=== PATIENT | female | born 1955 | race Caucasian/White ===

== ENCOUNTER → 2024-07-26 07:51 | Outpatient (REF) | payer MEDICARE, OTHER, SELFPAY | LOC: HWRCS 07:51 | PROVIDERS: ATTENDING PHYSICIAN Nurse Practitioner | DX: Z00.00 Encounter for general adult medical examination without abnormal findings (principal); I35.0 Nonrheumatic aortic (valve) stenosis; I07.1 Rheumatic tricuspid insufficiency | CPT/HCPCS: 93306 ==

== ENCOUNTER → 2024-08-10 10:57 | Outpatient (REF) | payer MEDICARE, OTHER, SELFPAY | LOC: HWWDC 10:57 | PROVIDERS: ATTENDING PHYSICIAN Nurse Practitioner | DX: Z12.31 Encounter for screening mammogram for malignant neoplasm of breast (principal); Z13.820 Encounter for screening for osteoporosis; M85.89 Other specified disorders of bone density and structure, multiple sites | CPT/HCPCS: 77063; 77067; 77080 ==

== ENCOUNTER → 2024-09-29 09:16 | Outpatient (REF) | payer MEDICARE, OTHER, SELFPAY | LOC: WDC 09:16 | PROVIDERS: ATTENDING PHYSICIAN Nurse Practitioner | DX: R92.8 Other abnormal and inconclusive findings on diagnostic imaging of breast (principal) | CPT/HCPCS: 77065 ==

== ENCOUNTER → 2024-10-07 07:34 | Outpatient (REF) | payer MEDICARE, OTHER, SELFPAY ==
--- NOTE | 2024-10-07 09:27 | OID.BR.INTR ---
NETTED Breast Navigator - Initial
- -
Date of Contact: 10/07/24
Met with patient. Patient given written information on navigator services available at [facility]. Will follow up as needed per protocol.
== END ==
LOC: WDC 07:34
PROVIDERS: ATTENDING PHYSICIAN Nurse Practitioner
DX: R92.1 Mammographic calcification found on diagnostic imaging of breast (principal)
CPT/HCPCS: 88305; 19081; 76098; A4648

== ENCOUNTER → 2024-10-31 10:57 | Outpatient (REF) | payer MEDICARE, OTHER, SELFPAY | LOC: WDC 10:57 | PROVIDERS: ATTENDING PHYSICIAN Surgery | DX: D05.11 Intraductal carcinoma in situ of right breast (principal) | CPT/HCPCS: 19281; A4648 ==

== ENCOUNTER → 2024-11-01 07:31 | Outpatient (REF) | payer MEDICARE, OTHER, SELFPAY | LOC: WDC 07:31 | PROVIDERS: ATTENDING PHYSICIAN Surgery | DX: D05.11 Intraductal carcinoma in situ of right breast (principal) | CPT/HCPCS: 88305; 88307; 76098 ==

== ENCOUNTER → 2024-12-14 11:50 | Outpatient (REF) | payer MEDICARE, OTHER, SELFPAY | LOC: SDSPAT 11:50 | PROVIDERS: ATTENDING PHYSICIAN Surgery; FAMILY PHYSICIAN Nurse Practitioner | DX: D05.91 Unspecified type of carcinoma in situ of right breast (principal) | CPT/HCPCS: 36415; 93005 ==

== ENCOUNTER 2024-12-16 06:04 | Day surgery (SDC) | payer MEDICARE, OTHER, SELFPAY ==
[2024-12-14 14:18] VITALS: BMI 37.3
[2024-12-16 09:26] VITALS: BP 134/78
[2024-12-16] MEDS: TYLENOL 1000 MG PO (09:43)
[2024-12-16] MEDS: NORMOSOL-R/PLASMALYTE-A 1000 IV (09:44)
[2024-12-16 11:23] VITALS: BP 97/57
--- NOTE | 2024-12-16 11:27 | W.IMMPOSTOP ---
Surgical Immed Post Op Note
-
Primary Surgeon: José
Assisting Surgeon: None
Pre-op Diagnosis: Right DCIS
Post-op Diagnosis: Right DCIS
Procedure Performed: Re-exicision lumpectomy right breast and oncoplastic closure
Anesthesia Type: TIVA
Specimen / Cultures: right lumpectomy
Estimated Blood Loss: 4cc
Complications: None
Operative Findings: None
[2024-12-16 11:30] VITALS: BP 108/40
--- NOTE | 2024-12-16 11:31 | OR.RPT ---
Operative Report
Operative Report
Date of procedure: 12/16/24
Pre-Op DX: Right breast DCIS
Post-Op DX: Right breast DCIS
Procedure: right re-excision lumpectomy and oncoplastic closure
Surgeon: José
The patient is a 69-year-old female who had undergone a localized lumpectomy for the treatment of DCIS and has 3 close surgical margins and presents now for reexcision lumpectomy and possible oncoplastic closure
The patient presented on the day of surgery to the same-day surgical services unit and was prepped. DVT and antibiotic prophylaxis were provided. The patient verified site and procedure and was taken to the operating room.
In the supine position intravenous sedation was delivered. Right breast was prepped and draped in usual sterile fashion. Appropriate timeout was performed by all surgical staff. Marcaine 0.1% plain was instilled into all tissues and the previous
circumareolar incision was entered sharply with the blade. Skin flaps were elevated with the cautery in the oncoplastic plane and a wide reexcision lumpectomy resecting the previous lumpectomy cavity was performed with the cautery. Time out of
body was noted and the specimen was oriented for the pathologist and sent for permanent analysis.
This left a resulting defect of 4 x 4 cm therefore in an oncoplastic fashion a separate parenchymal incision was made so an advancement flap could be generated and moved into position. Marcaine 0.5% plain was instilled and hemoclips were placed in
the resection bed. The wound was closed in multiple layers using simple interrupted 3-0 plain on deep and intermediate tissue. Subcutaneous tissue was closed with simple interrupted 4-0 Vicryl and a running subcuticular 4-0 Monocryl. Surgical
glue and sterile compressive dressings were applied.
All sponge needle and instrument counts were correct and the patient was transferred to the recovery room in stable condition
([id number], [id number])
[2024-12-16 11:41] VITALS: BP 112/60
[2024-12-16 11:48] VITALS: BP 120/61
== END 2024-12-16 12:27 | disposition home or self-care (01) ==
LOC: SDS 06:04
PROVIDERS: ATTENDING PHYSICIAN Surgery
DX: D05.11 Intraductal carcinoma in situ of right breast (principal)
CPT/HCPCS: 19301; 88307; 88341; 88342; A4648

== ENCOUNTER → 2025-02-03 08:48 | Outpatient (REF) | payer MEDICARE, OTHER, SELFPAY | LOC: WDC 08:48 | PROVIDERS: ATTENDING PHYSICIAN Radiology Radiation Oncology; FAMILY PHYSICIAN Nurse Practitioner | DX: D05.11 Intraductal carcinoma in situ of right breast (principal) | CPT/HCPCS: 77061; 77065 ==